=== PATIENT | female | born 1985 | race Caucasian/White ===

== ENCOUNTER 2019-09-08 09:42 | Emergency (ER) | payer OTHER, SELFPAY ==
[2019-09-08 09:54] VITALS: BP 117/74; PULSE 60; RESP 16; TEMP 36.4; O2SAT 100
--- NOTE | 2019-09-08 10:06 | ED.URI ---
HPI - URI/Sore Throat General Chief Complaint: Upper Respiratory Infection Stated Complaint: Ear/Nose/Sore Throat Time Seen by Provider: 09/08/19 10:07 Source: patient and RN notes reviewed Mode of arrival: ambulatory Limitations: no limitations History of Present Illness HPI Narrative: 34-year-old female presents with concern for 3-day history of left ear pain and sore throat, nasal congestion, chills. MD elicited complaint: nasal congestion Related Data Allergies Allergy/AdvReac Type Severity Reaction Status Date / Time acetaminophen Allergy Intermediate skin Verified 09/08/19 10:01 crawling hydrocodone Allergy Intermediate skin Verified 09/08/19 10:01 crawling oxycodone Allergy Intermediate skin Verified 09/08/19 10:01 crawling sumatriptan Allergy Unknown Hives / Verified 09/08/19 10:01 Red Face Contrast Media Allergy Unknown Hives / Uncoded 10/15/18 14:24 Red Face Review of Systems Review of Systems: Narrative: CONSTITUTIONAL: Reports malaise, chills. Denies sweats, or fever. EYES: Denies visual changes, redness, or discharge. ENT: Reports rhinorrhea, congestion, otalgia and sore throat. CARDIOVASCULAR: Denies chest pain, palpitations, or edema. RESPIRATORY: Reports occasional cough. Denies dyspnea. GASTROINTESTINAL: Denies abdominal pain, nausea, vomiting, diarrhea SKIN: Denies rash or itching. MUSCULOSKELETAL: Denies myalgia. NEUROLOGIC: Denies headache. All systems reviewed & are unremarkable except as noted in HPI and below PMFSH Comments At time of signature, agree with nursing past medical, surgical, social and family history. There is no relevant family history pertinent to the presenting complaint Exam Narrative: Exam Narrative: GENERAL: Well-appearing, well-nourished, and in no acute distress. HEAD: Normocephalic EYES: PERRLA, conjunctivae clear ENT: Nares clear, turbinates edematous and erythematous, clear discharge. Mucous membranes moist. TM pearly guthrie with sharp light reflex bilaterally; no tragal tenderness. Oropharynx mildly erythematous without lesions. Tonsils not enlarged and without exudate, no drooling, no hoarseness, no trismus, uvula midline. NECK: Supple. No lymphadenopathy CHEST: Clear to auscultation, breath sounds equal. No wheezing, rhonchi, rales, or stridor. No respiratory distress, speaks in full sentences. HEART: Regular rate and rhythm. No murmur heard. SKIN: Warm, dry, no rash. NEURO: Alert and oriented x3. PSYCH: Normal mood and affect Course Course Emergency Course: Patient is aware of diagnosis, understands and agrees to treatment plan. Anticipatory guidance given. Patient agrees to follow-up as directed and is aware of reasons to seek care at the emergency department. Portions of this record may have been created with voice recognition software Vital Signs Vital signs: Vital Signs Temperature 97.6 F 09/08/19 09:54 Pulse Rate 60 09/08/19 09:54 Respiratory Rate 16 09/08/19 09:54 Blood Pressure 117/74 09/08/19 09:54 Pulse Oximetry 100 09/08/19 09:54 Temperature 97.6 F 09/08/19 09:54 Pulse Rate 60 09/08/19 09:54 Respiratory Rate 16 09/08/19 09:54 Blood Pressure 117/74 09/08/19 09:54 Pulse Oximetry 100 09/08/19 09:54 Reviewed. MDM - URI/Sore Throat MDM Narrative Medical decision making narrative: Differential diagnosis considered: Strep pharyngitis, allergic rhinitis, upper respiratory tract infection, sinusitis, rhinosinusitis, nasopharyngitis. viral pharyngitis, otitis media, otitis externa, pneumonia, bronchitis, viral cough syndrome, viral syndrome, and influenza. Exam findings show no acute concerns or changes; patient is non-toxic appearing and is in no distress. Patient is appropriate for outpatient treatment and follow-up. Lab Data Attestation: I reviewed the patient's lab results. Critical Care Time Critical Care Time Critical Care Time: No Discharge Plan Discharge Clinical Impression: Upper respirat
== END 2019-09-08 10:30 | disposition home or self-care (01) ==
PROVIDERS: Emergency Provider Nurse Practitioner
DX: J06.9 Acute upper respiratory infection, unspecified (principal)
CPT/HCPCS: 87081; 87880; 99213; G0463

== ENCOUNTER 2019-09-16 14:07 | Emergency (ER) | payer OTHER, SELFPAY ==
--- NOTE | ~2019-09-16 | XR_ITS ---
EXAMINATION: XR ankle LT min 3V DATE: 09/16/2019 14:32 INDICATION: Nausea machine fell on the medial left ankle presenting with pain. TECHNIQUE: Anteroposterior, oblique, mortise, and lateral views of the left ankle were obtained. COMPARISON: None. FINDINGS: Alignment is normal. No fracture. Joint spaces are well maintained. No ankle joint effusion. The so ft tissues are unremarkable. IMPRESSION: 1. Negative left ankle radiographs. Reviewed, dictated and finalized at location A.
[2019-09-16 14:13] VITALS: BP 149/94; PULSE 89; RESP 16; TEMP 36.3; O2SAT 99
--- NOTE | 2019-09-16 14:33 | ED.LOWEXIN ---
HPI - Extremity Injury (Lower) General Chief Complaint: Extremity Injury, Lower Stated Complaint: Left ankle injury Time Seen by Provider: 09/16/19 14:33 Source: patient Mode of arrival: ambulatory Limitations: no limitations History of Present Illness HPI Narrative: Trixie Adame is a 34 yo female with no PMH who comes to express care with left lower midshaft injury from moving wool washer, glancing blow mid fibula tibia, pain lateral and medial. Occurred 2 hours ago Related Data Allergies Allergy/AdvReac Type Severity Reaction Status Date / Time acetaminophen Allergy Intermediate skin Verified 09/08/19 10:01 crawling hydrocodone Allergy Intermediate skin Verified 09/08/19 10:01 crawling oxycodone Allergy Intermediate skin Verified 09/08/19 10:01 crawling sumatriptan Allergy Unknown Hives / Verified 09/08/19 10:01 Red Face Contrast Media Allergy Unknown Hives / Uncoded 10/15/18 14:24 Red Face Review of Systems Review of Systems: Narrative: CONSTITUTIONAL: Denies fever, chills, sweats. EYES: Denies visual changes, redness, discharge. ENT: Denies rhinorrhea, congestion, sore throat, otalgia. CARDIOVASCULAR: Denies chest pain, palpitations, edema. RESPIRATORY: Denies dyspnea, wheezing, cough GASTROINTESTINAL: Denies abdominal pain, nausea, vomiting, diarrhea. GENITOURINARY: Denies dysuria, hematuria, abnormal discharge SKIN: Denies rash or itching. NEUROLOGIC: Denies numbness, or focal weakness. PSYCHIATRIC: Denies anxiety or depression. Left lower leg midshaft injury PMFSH Family History Family History (Updated 09/16/19 @ 14:37 by Casie Gastelum CNP) Other Diabetes mellitus History of permanent cardiac pacemaker placement Social History Social History (Updated 09/16/19 @ 14:37 by Casie Gastelum CNP) Smoking status: Current every day smoker Alcohol intake: current Comments At time of signature, I agree with nursing past medical, surgical, social and family history. There is no relevant family history pertinent to the presenting complaint. Has pcp, no dx HTN, due to injury Exam Narrative: Exam Narrative: GENERAL: This is a well-nourished, well-developed patient, in mild distress. HEAD: normocephalic, atraumatic. EYES: Sclera clear/white. Vision is grossly intact. EARS: External ears normal, . Hearing grossly intact. NOSE: External nose normal with no obvious nasal discharge, nares without redness, no rhinorrhea. THROAT: Mucous membranes moist, NECK: Neck supple,. CARDIOVASCULAR: Regular rate and rhythm without murmurs, gallops, or rubs. RESPIRATORY: Clear to auscultation. Breath sounds equal bilaterally. No wheezes, rales, or rhonchi. GASTROINTESTINAL: Abdomen soft, SKIN: warm, intact with no suspicious lesions or rash, good texture and turgor. NEURO: awake, alert, and oriented to person, place and time. There were no obvious focal neurologic abnormalities. Steady gait EXTREMITIES: Normal range of motion. No edema. Small dia medial tibia, no break in skin, states toes feel numb with move, plus pedal pulse good cap refill BACK: Nontender without deformity or crepitance.. Course Course Emergency Course: X-ray lower left extremity-negative x-ray Lobo wrap to ankle and lower left extremity Tramadol for pain Follow-up with PCP Vital Signs Vital signs: Vital Signs Temperature 97.4 F L 09/16/19 14:13 Pulse Rate 89 09/16/19 14:13 Respiratory Rate 16 09/16/19 14:13 Blood Pressure 149/94 H 09/16/19 14:13 Pulse Oximetry 99 09/16/19 14:13 Temperature 97.4 F L 09/16/19 14:13 Pulse Rate 89 09/16/19 14:13 Respiratory Rate 16 09/16/19 14:13 Blood Pressure 149/94 H 09/16/19 14:13 Pulse Oximetry 99 09/16/19 14:13 MDM - Extremity Injury (Lower) Differential Diagnosis Differential diagnosis: Likely ankle sprain and strain and other (Fibula or tibial fracture) Discharge Plan Discharge Clinical Impression: Ankle sprain and strai
--- NOTE | 2019-09-16 14:35 | PC.NURSE ---
PT DECLINES ICE FOR COMFORT AND WHEELCHAIR TO ROOM AND RADIOLOGY
== END 2019-09-16 14:45 | disposition home or self-care (01) ==
PROVIDERS: Emergency Provider Nurse Practitioner
DX: S93.402A Sprain of unspecified ligament of left ankle, initial encounter (principal); S96.912A Strain of unspecified muscle and tendon at ankle and foot level, left foot, initial encounter; X58.XXXA Exposure to other specified factors, initial encounter
CPT/HCPCS: 73610; 99213; G0463

== ENCOUNTER 2020-02-23 14:34 | Emergency (ER) | payer OTHER, SELFPAY ==
--- NOTE | ~2020-02-23 | XR_ITS ---
XR abdomen/kub 1V 02/23/2020 15:33 Indication: Right flank pain Procedure: Supine view of the abdomen Comparison: No prior studies for comparison. Findings: Bowel gas pattern is nonobstructive. No abnormal calcifications. Lung bases unremarkable. N o acute osseous abnormality. There is mild osteoarthritis Impression: 1: No acute abdominal abnormality. Reviewed, dictated and finalized at location A. Impression: 1: No acute abdominal abnormality.
[2020-02-23 14:46] VITALS: BP 119/71; PULSE 64; RESP 16; TEMP 36.8; O2SAT 98
--- NOTE | 2020-02-23 15:07 | ED.GENADULT ---
HPI - General Adult General Chief complaint: Urogenital-Female Stated complaint: bladder infection Time Seen by Provider: 02/23/20 15:07 Source: patient Mode of arrival: ambulatory Limitations: no limitations History of Present Illness HPI narrative: 34-year-old female patient presents to the [facility] with complaints of right flank pain for the past 2 days. Patient states this started to the right lower back and has progressed over to her lower right groin. Patient denies fevers, body aches or chills. Denies any chest pain, shortness of breath. Patient denies any pain with urination but states she does have urinary frequency and states she has been going very little when she does urinate. Patient states she has had kidney stones before in the past. Patient denies any or breast-feeding at this time. Related Data Home Medications Medication Instructions Recorded Confirmed No Home Medications 02/23/20 02/23/20 Allergies Allergy/AdvReac Type Severity Reaction Status Date / Time acetaminophen Allergy Intermediate skin Verified 02/23/20 15:07 crawling hydrocodone Allergy Intermediate skin Verified 02/23/20 15:07 crawling oxycodone Allergy Intermediate skin Verified 02/23/20 15:07 crawling sumatriptan Allergy Unknown Hives / Verified 02/23/20 15:07 Red Face Contrast Media Allergy Unknown Hives / Uncoded 10/15/18 14:24 Red Face Review of Systems Review of Systems: Narrative: CONSTITUTIONAL: Denies fever, chills, or sweats. EYES: Denies visual changes, redness, or discharge. ENT: Denies rhinorrhea, congestion, sore throat, or otalgia. CARDIOVASCULAR: Denies chest pain, palpitations, or edema. RESPIRATORY: Denies cough or dyspnea. GASTROINTESTINAL: Denies abdominal pain, nausea, vomiting, or diarrhea. GENITOURINARY: Denies dysuria or hematuria. Positive right flank pain and right sided groin pain with urgency and frequency SKIN: Denies rash or itching. MUSCULOSKELETAL: Denies back pain, joint pain, or myalgia. NEUROLOGIC: Denies headache, numbness, or weakness. PSYCHIATRIC: Denies anxiety or depression. [facility] Family History Family History Other Diabetes mellitus History of permanent cardiac pacemaker placement Social History Social History (Reviewed 02/23/20 @ 15:08 by ALE Sherman Smoking status: Current every day smoker Alcohol intake: current Comments At the time of my signature I agree with nursing past medical history, surgical, social, and family history. There is no relevant family history pertinent to the presenting complaint. Exam Narrative: Exam Narrative: GENERAL: Well-appearing, well-nourished, and in no acute distress. HEAD: Normocephalic, atraumatic. EYES: PERRLA and EOMI. ENT: Nares clear, no rhinorrhea or epistaxis. Mucous membranes moist. NECK: Supple. No lymphadenopathy CHEST: Clear to auscultation. No respiratory distress. HEART: Regular rate and rhythm. No murmur heard. Normal peripheral pulses. ABDOMEN: Soft, nontender, nondistended, normal active bowel sounds. No CVA tenderness on percussion. Patient does have some tenderness noted on palpation to the right lower quadrant more towards pelvic area. EXTREMITIES: Normal range of motion. No edema. SKIN: Warm, dry, no rash. NEURO: No focal deficits. Alert and oriented x3. Course Reevaluation(s) Reevaluation #1: Reevaluated patient after x-ray resulted. Discussed with her that her x-ray was normal did not show any evidence of a kidney stone however this is not a very good reliable source to diagnose kidney stones and therefore since she is still continuing to have the pain I think we need to send her to the ER to obtain possible CT scan to rule this out. Patient verbalized understanding and requesting to go to [facility] ER in [place]. Date: 02/23/20 Time: 15:45 Vital Signs Vital signs: Vital Signs Temperature 36.8 C 02/23/20 1
== END 2020-02-23 15:45 | disposition short-term general hospital (02) ==
PROVIDERS: Emergency Provider Nurse Practitioner Family
DX: R10.9 Unspecified abdominal pain (principal); F17.200 Nicotine dependence, unspecified, uncomplicated
CPT/HCPCS: 74018; 81003; 81025; 87086; 99213; G0463

== ENCOUNTER 2020-07-12 13:51 | Emergency (ER) | payer OTHER, SELFPAY ==
--- NOTE | 2020-07-12 13:57 | ED.GENADULT ---
HPI - General Adult General Chief complaint: Upper Respiratory Infection Stated complaint: nausea sinus pressure head ache Time Seen by Provider: 07/12/20 14:25 Source: patient Mode of arrival: ambulatory Limitations: no limitations History of Present Illness HPI narrative: 35-year-old female patient presents to the [facility] with complaints of a headache that started this past Thursday approximately 5 to 6 days ago. Patient also complained of nausea, vomiting, diarrhea. Patient also complaining of sinus congestion, runny nose and sinus pressure. Patient denies any fevers, body aches or chills. Denies any chest pain or shortness of breath. Patient states she does have a history of migraines but states that this feels different than her migraines is mostly towards her forehead. Patient states she thinks she might have a sinus infection. Patient states she has tried multiple [id number] medications including Tylenol, ibuprofen, Zyrtec and Marlene. Related Data Home Medications Medication Instructions Recorded Confirmed No Home Medications 02/23/20 07/12/20 Allergies Allergy/AdvReac Type Severity Reaction Status Date / Time acetaminophen Allergy Intermediate skin Verified 07/12/20 14:21 crawling hydrocodone Allergy Intermediate skin Verified 07/12/20 14:21 crawling oxycodone Allergy Intermediate skin Verified 07/12/20 14:21 crawling sumatriptan Allergy Unknown Hives / Verified 07/12/20 14:21 Red Face Contrast Media Allergy Unknown Hives / Uncoded 07/12/20 14:21 Red Face Review of Systems Review of Systems: Narrative: CONSTITUTIONAL: Denies fever, chills, or sweats. EYES: Denies visual changes, redness, or discharge. ENT: Positive rhinorrhea, congestion, denies sore throat, or otalgia. CARDIOVASCULAR: Denies chest pain, palpitations, or edema. RESPIRATORY: Positive cough, denies dyspnea. GASTROINTESTINAL: Denies abdominal pain, nausea, vomiting, or diarrhea. GENITOURINARY: Denies dysuria or hematuria. SKIN: Denies rash or itching. MUSCULOSKELETAL: Denies back pain, joint pain, or myalgia. NEUROLOGIC: Positive headache, denies numbness, or weakness. PSYCHIATRIC: Denies anxiety or depression. [facility] Family History Family History Other Diabetes mellitus History of permanent cardiac pacemaker placement Social History Social History Smoking status: Current every day smoker Alcohol intake: current Comments At the time of my signature I agree with nursing past medical history, surgical, social, and family history. There is no relevant family history pertinent to the presenting complaint. Exam Narrative: Exam Narrative: GENERAL: Well-appearing, well-nourished, and in no acute distress. HEAD: Normocephalic, atraumatic. Tenderness noted to frontal and maxillary sinuses on palpation EYES: PERRLA and EOMI. slight photophobia noted. ENT: Nares with erythema and edema noted bilaterally, no rhinorrhea or epistaxis. Mucous membranes moist. Posterior pharynx with slight erythema and 1+ tonsil enlargement. No exudates or lesions present. NECK: Supple. No lymphadenopathy CHEST: Clear to auscultation. No respiratory distress. Patient able talk in clear complete sentences. No tripoding noted. HEART: Regular rate and rhythm. No murmur heard. Normal peripheral pulses. ABDOMEN: Soft, flat, nondistended. No guarding, rebound tenderness, or rigid. No pulsatilla masses. Hyperactive bowel sounds present in all four quadrants. No organomegaly. Negative Reese?s sign. No periumbicial tenderness. No Supra public tenderness or distension. Good femoral pulses bilaterally. No hernia noted. No scars or surface trauma. EXTREMITIES: Normal range of motion. No edema. SKIN: Warm, dry, no rash NEURO: Alert and oriented x4, GCS 15. Cranial nerves II through XII grossly intact. No focal neurological deficits. Nor
[2020-07-12 14:03] VITALS: BP 154/93; PULSE 77; RESP 20; TEMP 36.8; O2SAT 98
[2020-07-12] MEDS: diphenhydrAMINE HCl CAP 25 MG CAPSULE 50 MG PO (14:33)
[2020-07-12] MEDS: ONDANSETRON HCL ODT 4 MG TABLET PO (14:33)
[2020-07-12] MEDS: KETOROLAC (*BKC) 60 MG/2 ML VIAL IM (14:34)
[2020-07-13 18:46] LABS: SARS-CoV-2 RNA PCR Negative
== END 2020-07-12 15:20 | disposition home or self-care (01) ==
PROVIDERS: Emergency Provider Nurse Practitioner Family
DX: G43.909 Migraine, unspecified, not intractable, without status migrainosus (principal); Z20.822 Contact with and (suspected) exposure to COVID-19; F17.200 Nicotine dependence, unspecified, uncomplicated
CPT/HCPCS: 87426; 96372; 99213; A9270; C9803; G0463; J1885; U0003; U0005

== ENCOUNTER 2020-09-04 12:28 | Emergency (ER) | payer OTHER, SELFPAY ==
--- NOTE | ~2020-09-04 | XR_ITS ---
EXAMINATION: XR wrist RT min 3V INDICATION: Right wrist pain TECHNIQUE: Four views of the right wrist are obtained. COMPARISON: None available FINDINGS: There is no fracture, dislocation, or subluxation. The bones, soft tissues, and joint space s are normal. IMPRESSION: 1. No acute osseous abnormality. Reviewed, dictated and finalized at location A. LST[employer] ESTIMATOR
[2020-09-04 12:35] VITALS: BP 136/83; PULSE 77; RESP 18; TEMP 37.1; O2SAT 98
--- NOTE | 2020-09-04 12:43 | ED.UPPEXIN ---
HPI - Extremity Injury (Upper) General Chief Complaint: Extremity Injury, Upper Stated Complaint: right wrist injury Time Seen by Provider: 09/04/20 12:44 Source: patient and RN notes reviewed History of Present Illness HPI narrative: Patient is a 35-year-old female who presents the urgent care with complaints of right wrist injury. Patient states that yesterday she was attempting to carry in groceries and her screen door slammed onto her right wrist. Patient states that she immediately used ice and took Tylenol/ibuprofen for the last 24 hours. Patient states that it hurts to make a fist or rotate the right arm. No other acute complaints or injuries. No acute distress noted. Patient aware of the plan of care. Some parts of this dictation were generated by voice recognition software and may contain typographical and/or grammatical inaccuracies. Related Data Home Medications Medication Instructions Recorded Confirmed No Home Medications 02/23/20 09/04/20 Allergies Allergy/AdvReac Type Severity Reaction Status Date / Time acetaminophen Allergy Intermediate skin Verified 09/04/20 12:33 crawling hydrocodone Allergy Intermediate skin Verified 09/04/20 12:33 crawling oxycodone Allergy Intermediate skin Verified 09/04/20 12:33 crawling sumatriptan Allergy Unknown Hives / Verified 09/04/20 12:33 Red Face Contrast Media Allergy Unknown Hives / Uncoded 07/12/20 14:21 Red Face Review of Systems Review of Systems: Narrative: CONSTITUTIONAL: Denies fever, chills, or sweats. EYES: Denies visual changes, redness, or discharge. ENT: Denies rhinorrhea, congestion, sore throat, or otalgia. CARDIOVASCULAR: Denies chest pain, palpitations, or edema. RESPIRATORY: Denies cough or dyspnea. GASTROINTESTINAL: Denies abdominal pain, nausea, vomiting, or diarrhea. GENITOURINARY: Denies dysuria or hematuria. SKIN: Denies rash or itching. MUSCULOSKELETAL: Reports of right wrist pain NEUROLOGIC: Denies headache, numbness, or weakness. All other systems reviewed are negative, except as documented in HPI. [facility] Family History Family History Other Diabetes mellitus History of permanent cardiac pacemaker placement Social History Social History Smoking status: Current every day smoker Alcohol intake: current Comments At the time of my signature, I reviewed and agree with the nursing past medical, surgical, social, and family history. There is no relevant family history pertinent to the patient complaint. Exam Narrative: Exam Narrative: GENERAL: This is a well-nourished, well-developed patient, in no apparent distress. HEAD: normocephalic, atraumatic. EYES: PERRL. Sclera clear/white. Vision is grossly intact. EARS: External ears normal NOSE: External nose normal with no obvious nasal discharge, nares without redness, no rhinorrhea. THROAT: Mucous membranes moist NECK: Neck supple SKIN: warm, intact with no suspicious lesions or rash, good texture and turgor. NEURO: awake, alert, and oriented to person, place and time. There were no obvious focal neurologic abnormalities. EXTREMITIES: No obvious deformity, edema, ecchymosis or erythema noted to the right upper extremity. Range of motion to right wrist limited due to pain. All phalanges of right hand with normal range of motion. Positive strong right radial pulse with capillary refill less than 2 seconds. Mild pain to radial aspect of right wrist on assessment. Course Vital Signs Vital signs: Vital Signs Temperature 98.7 F 09/04/20 12:35 Pulse Rate 77 09/04/20 12:35 Respiratory Rate 18 09/04/20 12:35 Blood Pressure 136/83 09/04/20 12:35 Pulse Oximetry 98 09/04/20 12:35 Temperature 98.7 F 09/04/20 12:35 Pulse Rate 77 09/04/20 12:35 Respiratory Rate 18 09/04/20 12:35 Blood Pressure 136/83 09/04/20 12:35 Pulse Oxime
== END 2020-09-04 13:15 | disposition home or self-care (01) ==
PROVIDERS: Emergency Provider Nurse Practitioner Family
DX: S60.211A Contusion of right wrist, initial encounter (principal); W23.0XXA Caught, crushed, jammed, or pinched between moving objects, initial encounter; F17.200 Nicotine dependence, unspecified, uncomplicated
CPT/HCPCS: 73110; 99213; G0463

== ENCOUNTER 2022-09-17 14:07 | Emergency (ER) | payer OTHER, SELFPAY ==
--- NOTE | 2022-09-17 14:11 | ED.URI ---
HPI - URI/Sore Throat General Chief Complaint: Upper Respiratory Infection Stated Complaint: sinus Time Seen by Provider: 09/17/22 14:12 Source: patient and RN notes reviewed History of Present Illness HPI Narrative: Patient is a 37-year-old female who presents to urgent care with complaints of sinus issues since Thursday with runny nose, cough, congestion. Patient states that she has been using NyQuil and allergy medication without much relief. 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 Denies any fever, nausea, vomiting. No other acute complaints. No acute distress noted. Patient aware of the plan of care. Some parts of this dictation were generated by voice recognition software and may contain typographical and/or grammatical inaccuracies. Related Data Allergies Allergy/AdvReac Type Severity Reaction Status Date / Time acetaminophen Allergy Intermediate skin Verified 09/17/22 14:21 crawling hydrocodone Allergy Intermediate skin Verified 09/17/22 14:21 crawling oxycodone Allergy Intermediate skin Verified 09/17/22 14:21 crawling sumatriptan Allergy Unknown Hives / Verified 09/17/22 14:21 Red Face Contrast Media Allergy Unknown Hives / Uncoded 09/17/22 14:21 Red Face Review of Systems Review of Systems: CONSTITUTIONAL: Denies fever, chills, or sweats. EYES: Denies visual changes, redness, or discharge. ENT: Reports rhinorrhea, congestion, postnasal drainage CARDIOVASCULAR: Denies chest pain, palpitations, or edema. RESPIRATORY: Reports mild cough without dyspnea GASTROINTESTINAL: Denies abdominal pain, nausea, vomiting, or diarrhea. GENITOURINARY: Denies dysuria or hematuria. SKIN: Denies rash or itching. MUSCULOSKELETAL: Denies back pain, joint pain, or myalgia. NEUROLOGIC: Denies headache, numbness, or weakness. All other systems reviewed are negative, except as documented in HPI. [facility] Family History Family History Other Diabetes mellitus History of permanent cardiac pacemaker placement Social History Social History Smoking status: Current every day smoker Alcohol intake: current Comments At the time of my signature, I reviewed and agree with the nursing past medical, surgical, social, and family history. There is no relevant family history pertinent to the patient complaint. Exam Narrative: GENERAL: This is a well-nourished, well-developed patient, in no apparent distress. HEAD: normocephalic, atraumatic. Frontal sinus tenderness EYES: PERRL. Sclera clear/white. Vision is grossly intact. EARS: External ears normal, auditory canals clear and without drainage, TMs normal without perforation. Hearing grossly intact. NOSE: External nose normal with no obvious nasal discharge, nares without redness, no rhinorrhea. THROAT: Mucous membranes moist, posterior pharynx clear. Moderate postnasal drainage NECK: Neck supple, non-tender without lymphadenopathy CARDIOVASCULAR: Regular rate and rhythm without murmurs, gallops, or rubs. RESPIRATORY: Clear to auscultation. Breath sounds equal bilaterally. No wheezes, rales, or rhonchi. Wet cough noted on exam SKIN: warm, intact with no suspicious lesions or rash, good texture and turgor. NEURO: awake, alert, and oriented to person, place and time. There were no obvious focal neurologic abnormalities. EXTREMITIES: No clubbing, cyanosis, or edema. Course Course Level of Care: Express Care Visit Vital Signs Vital signs: Vital Signs Temperature 97.7 F 09/17/22 14:24 Pulse Rate 75 09/17/22 14:24 Respiratory Rate 18 09/17/22 14:24 Blood Pressure 108/75 09/17/22 14:24 Pulse Oximetry 99 09/17/22 14:24 Oxygen Delivery Room Air 09/17/22 14:24 Temperature 97.7 F 09/17/22 14:24 Pulse Rate 75 09/17/22 14:24 Respiratory Rate 18 09/17/22 14:24 Blood Pressure 108/75 09/17/22 14:24 Pulse Ox
[2022-09-17 14:24] VITALS: BP 108/75; PULSE 75; RESP 18; TEMP 36.5; O2SAT 99
== END 2022-09-17 15:10 | disposition home or self-care (01) ==
PROVIDERS: Emergency Provider Nurse Practitioner Family; PCP Family Medicine
DX: J32.9 Chronic sinusitis, unspecified (principal); F17.210 Nicotine dependence, cigarettes, uncomplicated
CPT/HCPCS: 99213; G0463